=== PATIENT | female | born 1965 | race Caucasian/White ===

== ENCOUNTER → 2017-02-10 | Outpatient (CLI) | payer OTHER | LOC: FIMAGING 08:33 | PROVIDERS: ATTEND Family Medicine | DX: Z12.31 Encounter for screening mammogram for malignant neoplasm of breast (principal); Z80.3 Family history of malignant neoplasm of breast | CPT/HCPCS: G0202 ==

== ENCOUNTER → 2018-01-07 | Outpatient (CLI) | payer OTHER | LOC: FIMAGING 08:31 | PROVIDERS: ATTEND Nurse Practitioner Women's Health | DX: Z12.31 Encounter for screening mammogram for malignant neoplasm of breast (principal) ==

== ENCOUNTER 2018-03-04 10:32 | Emergency (ER) | payer OTHER ==
--- NOTE | 2018-03-04 11:22 | EDPHY ---
H & P Time Seen by Provider: 03/04/18 11:21 HPI/ROS: CHIEF COMPLAINT: Witnessed bat bite HISTORY OF PRESENT ILLNESS: 53-year-old immunocompetent female complaining of bat bite to her right lateral calf which occurred 7 days ago. She was walking her dog at dusk, felt a bat fly by and noticed 2 puncture wounds in same location. Contacted [facility] Department recommend she come to the ER for evaluation initiation post exposure prophylaxis. She has no complaints of pain or discomfort. Her tetanus is out-of-date. No neurologic complaints. No chest pain or dyspnea no abdominal pain no lymphangitic streaking. PRIMARY CARE PROVIDER:Sunita Ponce REVIEW OF SYSTEMS: A ten point review of systems was performed and is negative with the exception of the items mentioned in the HPI PAST MEDICAL & SURGICAL HISTORY: No pertinent medical or surgical history SOCIAL HISTORY: nonsmoker PHYSICAL EXAM (Prior to examination, patient consented to physical exam, hands were washed and my usual and customary physical exam procedures followed) 1) GENERAL: Well-developed, well-nourished, alert and oriented. Appears to be in no acute distress. Smiling shakes my hand conversational appears well 2) HEAD: Normocephalic, atraumatic 3) HEENT: Pupils equal, round, reactive to light bilaterally. Sclera anicteric. 4) NECK: Full range of motion, no meningeal signs. 5) LUNGS: Clear auscultation bilaterally, no wheezes, no rhonchi, no retractions. 6) HEART: Regular rate and rhythm, no murmur, no heave, no gallop. 7) ABDOMEN: No guarding, no rebound, no focal tenderness, negative McBurney's, 8) MUSCULOSKELETAL: Right lower extremity: The right lateral calf she has 2 puncture wounds approximately 1 cm apart. There is no signs of localized infection or cellulitis. No lymphangitic streaking. No fluctuance. Soft compartments. Moving all extremities, no focal areas of tenderness, no obvious trauma. No peripheral edema or discoloration. 9) BACK: No visual or palpable abnormality. 10) SKIN: No rash, no petechiae. 11) Psychiatric: Patient is oriented X 3, there is no agitation. DIFFERENTIAL DIAGNOSIS: In no particular order include but limited to cellulitis, bat bite, insect bite. Smoking Status: Never smoked Constitutional: Initial Vital Signs Temperature (C) 36.9 C 03/04/18 10:46 Heart Rate 100 03/04/18 10:46 Respiratory Rate 16 03/04/18 10:46 Blood Pressure 133/98 H 03/04/18 10:46 O2 Sat (%) 94 03/04/18 10:46 O2 Delivery Mode Room Air Allergies/Adverse Reactions: No Known Allergies Allergy (Unverified 03/04/18 10:45) Home Medications: Medication Instructions Recorded Aspirin 03/04/18 Omeprazole 03/04/18 MDM/Departure - MDM Medications Given: Discontinued Medications Diphtheria/Tetanus/Acell Pertussis (Boostrix) 0.5 ml IM .ONCE ONE Stop: 03/04/18 12:00 Last Admin: 03/04/18 12:33 Dose: 0.5 ml Rabies Immune Globulin (Hyperrab S-D Vial 10ml) 1,400 unit IM .ONCE ONE Stop: 03/04/18 12:31 Last Admin: 03/04/18 12:34 Dose: 1,400 unit Rabies Vaccine Human Diploid Cell (Rabavert) 2.5 unit IM .ONCE ONE Stop: 03/04/18 11:41 Last Admin: 03/04/18 11:56 Dose: 2.5 unit Tetracaine/Epinephrine/Lidocaine (Let Gel Topical) 1 ea TP EDNOW ONE Stop: 03/04/18 11:39 Last Admin: 03/04/18 11:41 Dose: 1 ea ED Course/Re-evaluation: 11:34 a.m.: Patient has no signs of localized infection/cellulitis. Tetanus has been updated. Will initiate post exposure rabies prophylaxis. Today will be day 0. She will plan on following up the [facility] for further rabies vaccine. She is asymptomatic at this time. I saw this patient independently based on established practice protocols. Care of patient under supervision of secondary supervising physician Dr Uiras with whom I discussed case. - Depart Disposition: Home, Routine, Self-Care Clinical Impression: Bat bite wound Condition: Good Instructions: Rabies Vaccine (By injection), Rabies Immune Globulin (By injection), Rabies (ED), Rabies Vaccine (ED) Additional Instructions: Today is day 0. You received the immunoglobulin and rabies vaccine. Your vaccination schedule is as follows. Day 3: March 07 Day 7: March 11 Day 14: Elaine 19 Recommend you follow up at the [facility] to receive further vaccine. Return to the ER if you develop redness at your injection site or at your bite site or any other symptoms that concern you. Referrals: [facility] (ED,. [Edm Groups for Call Sched] - 03/08/18
[2018-03-04] MEDS ORDERED: RABIES IMMUNE GLOBULIN 300 UNIT/2 ML VIAL IM ONE (11:38)
[2018-03-04] MEDS ORDERED: LET GEL TOPICAL 1 EA SYR TP ONE (11:38)
[2018-03-04] MEDS ORDERED: RABIES VACC, HUMAN DIPLOID/PF 2.5 UNIT VIAL (RABAVERT) IM ONE (11:40)
[2018-03-04] MEDS ORDERED: TDAP ADULT 0.5 ML INJ (BOOSTRIX) IM ONE (11:59)
[2018-03-04] MEDS ORDERED: RABIES IMMUNE GLOBULIN 150 UNIT/ML 10 ML VIAL IM ONE (12:30)
[2018-03-04 12:49] VITALS: BP 111/89
== END 2018-03-04 12:54 | disposition home or self-care (01) ==
DX: S81.851A Open bite, right lower leg, initial encounter (principal); Z23 Encounter for immunization; Z79.82 Long term (current) use of aspirin; W55.81XA Bitten by other mammals, initial encounter; Y92.89 Other specified places as the place of occurrence of the external cause; Y99.8 Other external cause status; Y93.K1 Activity, walking an animal

== ENCOUNTER → 2019-01-13 | Outpatient (CLI) | payer OTHER | LOC: FIMAGING 13:13 | PROVIDERS: ATTEND Nurse Practitioner Women's Health | DX: Z12.31 Encounter for screening mammogram for malignant neoplasm of breast (principal) ==